=== PATIENT | male | born 1950 | race Caucasian/White ===

== ENCOUNTER 2017-09-03 14:27 | Inpatient (IN) ==
[2017-09-03] MEDS ORDERED: NS 1,000 ML IV ONE (15:03)
[2017-09-03] MEDS ORDERED: ONDANSETRON 4 MG/2 ML INJECTION IVP ONE (15:05)
--- NOTE | 2017-09-03 15:06 | Emergency Department Report ---
Male Urogenital HPI - General Chief complaint: Urogenital-Male Stated complaint: poss kidney stone,fever Time Seen by Provider: 09/03/17 14:44 Source: patient Mode of arrival: ambulatory Limitations: no limitations - History of Present Illness HPI Narrative: Patient is a 67-year-old male who presents to the ER with complaints of severe fatigue/weakness, dark urine progressing over the last several days, and pain in his left and right flank which he thinks is related to kidney stones. This morning had a fever of 101. Has had nausea but no vomiting. Last ate last evening. Had a Coke today around noon. Last kidney stone was 2-3 years ago. States his pain started around 10 AM. He had cold symptoms starting last week and started to feel better over the weekend, but reports that yesterday he was starting to feel run down. - Related Data Home Medications Medication Instructions Recorded Confirmed No known Home medications [No home 09/03/17 09/03/17 meds] Allergies Allergy/AdvReac Type Severity Reaction Status Date / Time amoxicillin Allergy Mild Verified 09/03/17 15:03 codeine Allergy Unknown Verified 09/03/17 15:03 Penicillins Allergy Unknown Verified 09/03/17 15:03 Review of Systems All systems: reviewed and negative except as stated (headache, nausea, epigastric and umbilical abdominal pain, flank pain, myalgias. No urinary symptoms other than dark urine) [facility] Patient Stated Medical History Other HEENT Yes: Wears glasses Hx Kidney Stones Yes Clinic Medical History (Last Reviewed 06/28/17 @ 10:16 by Danish Sweeney MD) Anxiety (Acute Medical) High blood pressure (Acute Medical) UGO (obstructive sleep apnea) (Acute Medical) Surgical History: Lt Shoulder Rotator Cuff, lithotripsy Family History: Family History (Last Reviewed 06/28/17 @ 10:16 by Danish Sweeney MD) Father Diabetes Heart failure Mother High blood pressure Stroke - Social History Smoking status: Former smoker (quit "a long time ago") Substance use type: does not use Alcohol intake frequency: former alcohol drinker (quit drinking greater than 5 years ago) Household members: spouse Current occupational status: employed Current occupation: [employer] Social history: PCP-Dr. Elmore Physical Exam - Limitations Limitations: no limitations - General General appearance: in no apparent distress - Normal Exams: Head:: Normocephalic without trauma Eyes:: Pupils are PERRLA w/ EOMI Neck:: Full range of motion, without adenopathy Chest/Respirations:: Clear all fajardo Cardiovascular:: Regular rate and rhythm, capillary refill Abdomen:: Bowel sounds positive, soft, non-tender Integumentary:: No rashes Neurological:: Patient is alert, and oriented, exams w/o gross deficits Psychiatric:: Patient exhibits, appropriate attention - Abdominal Exam Abdominal exam: Present: distention, tenderness (epigastric and periumbilical). Absent: guarding, rebound - Extremities Exam Extremities exam: Absent: pedal edema - Back Exam Back exam: Absent: CVA tenderness (R), CVA tenderness (L) Course Vital Signs Temperature 99.1 F 09/03/17 14:40 Pulse Rate 98 09/03/17 14:40 Respiratory Rate 20 09/03/17 14:40 Blood Pressure 122/70 09/03/17 14:40 Pulse Oximetry 95 09/03/17 14:40 Temperature 98.9 F 09/03/17 18:55 Pulse Rate 82 09/03/17 18:55 Respiratory Rate 20 09/03/17 18:55 Blood Pressure 133/76 09/03/17 18:55 Pulse Oximetry 98 09/03/17 18:55 Urogenital-Male - MDM Narrative Medical decision making narrative: Patient with acute cholelithiasis. Gallbladder ultrasound and CT scan correlate with this. Elevated LFTs. Leukocytosis. Dr. Hankins initially consulted as he was hematologist oncologist. He recommended I consult Dr. Cortez as "Dr. Elmore typically refers everything to Dr. Cortez." Case discussed with Dr. Cortez who would like hospitalists to admit and consult him. He will see patient today. Surgery in the morning. Dr. Soto was notified and accepted admit. - Lab Data Attestation: I reviewed the patient's lab results. Result diagrams: 09/03/17 15:10 09/03/17 15:10 Lab Results 09/03/17 09/03/17 09/03/17 Range/Units 15:10 15:10 15:10 WBC 12.0 H (4.5-11.0) T/MM3 RBC 5.26 (4.50-5.90) M/MM3 Hgb 15.9 (13.5-17.5) GM/DL Hct 47.1 (41-53) % MCV 89.5 (80-100) UM3 MCH 30.2 (26-34) UUG MCHC 33.8 (31-37) GM/DL RDW Std Deviation 42.7 (36.9-50.2) FL Plt Count 183 (130-400) T/MM3 MPV 9.8 (9.4-12.4) UM3 Immature Gran % (Auto) Not performed Neut % (Auto) Not performed Lymph % (Auto) Not performed [place] % (Auto) Not performed Eos % (Auto) Not performed Baso % (Auto) Not performed Neut # (Auto) Not performed Lymph # (Auto) Not performed [place] # (Auto) Not performed Eos # (Auto) Not performed Baso # (Auto) Not performed Abs Immat Gran (auto) Not performed Neutrophils % (Manual) 92.0 H (33-66) % Lymphocytes % (Manual) 5.0 L (23-45) % Monocytes % (Manual) 3.0 (0-9.0) % Neutrophils # (Manual) 11.0 H (1.8-7.7) T/MM3 Lymphocytes # (Manual) 0.6 L (1-4.8) T/MM3 Monocytes # (Manual) 0.4 (0-0.8) T/MM3 RBC Morph Comment Normal Turbidity < 20 (0-20) Sodium 144 (134-144) MEQ/L Potassium 3.4 L (3.6-5) MEQ/L Chloride 104 (98-107) MEQ/L Carbon Dioxide 27 (22-30) MEQ/L Anion Gap 13 (5-15) MEQ/L BUN 13.0 (9-20) MG/DL Creatinine 1.0 (0.8-1.5) mg/dL GFR Calculation 75 BUN/Creatinine Ratio 13 (6-26) RATIO Glucose 130 H (75-110) MG/DL Calculated Osmolality 279 (261-280) MOSM/KG Calcium 9.2 (8.4-10.2) MG/DL Total Bilirubin 1.60 H (0.20-1.30) MG/DL Icterus Index < 2 (0-7) AST 178 H (17-59) U/L ALT 256 H (21-72) U/L Alkaline Phosphatase 133 H (38-126) U/L Total Protein 7.6 (6.3-8.2) g/dL Albumin 4.4 (3.5-5.0) g/dL Globulin 3.2 (2.4-3.6) G/DL Albumin/Globulin Ratio 1.4 (1.1-2.2) RATIO Specimen Hemolysis < 15 (0-25) Ur Collection Type Urine, void-cc/notcc Urine Color Yellow (YELLOW) Urine Clarity Clear Urine pH 5.5 (5.0-8.0) Ur Specific [place] 1.025 (1.015-1.025) Urine Protein Negative (NEGATIVE) Urine Glucose (UA) Negative (NEGATIVE) Urine Ketones Negative (NEGATIVE) Urine Occult Blood Negative (NEGATIVE) Urine Nitrate Negative (NEGATIVE) Urine Bilirubin Negative (NEGATIVE) Urine Urobilinogen 0.2 (NORMAL) EU/DL Ur Leukocyte Esterase Negative (NEGATIVE) Urinalysis Comment Microscopic not ind. Influenza Type A (PCR) (Negative) Influenza Type B (PCR) (Negative) 09/03/17 Range/Units 15:10 WBC (4.5-11.0) T/MM3 RBC (4.50-5.90) M/MM3 Hgb (13.5-17.5) GM/DL Hct (41-53) % MCV (80-100) UM3 MCH (26-34) UUG MCHC (31-37) GM/DL RDW Std Deviation (36.9-50.2) FL Plt Count (130-400) T/MM3 MPV (9.4-12.4) UM3 Immature Gran % (Auto) Neut % (Auto) Lymph % (Auto) [place] % (Auto) Eos % (Auto) Baso % (Auto) Neut # (Auto) Lymph # (Auto) [place] # (Auto) Eos # (Auto) Baso # (Auto) Abs Immat Gran (auto) Neutrophils % (Manual) (33-66) % Lymphocytes % (Manual) (23-45) % Monocytes % (Manual) (0-9.0) % Neutrophils # (Manual) (1.8-7.7) T/MM3 Lymphocytes # (Manual) (1-4.8) T/MM3 Monocytes # (Manual) (0-0.8) T/MM3 RBC Morph Comment Turbidity (0-20) Sodium (134-144) MEQ/L Potassium (3.6-5) MEQ/L Chloride (98-107) MEQ/L Carbon Dioxide (22-30) MEQ/L Anion Gap (5-15) MEQ/L BUN (9-20) MG/DL Creatinine (0.8-1.5) mg/dL GFR Calculation BUN/Creatinine Ratio (6-26) RATIO Glucose (75-110) MG/DL Calculated Osmolality (261-280) MOSM/KG Calcium (8.4-10.2) MG/DL Total Bilirubin (0.20-1.30) MG/DL Icterus Index (0-7) AST (17-59) U/L ALT (21-72) U/L Alkaline Phosphatase (38-126) U/L Total Protein (6.3-8.2) g/dL Albumin (3.5-5.0) g/dL Globulin (2.4-3.6) G/DL Albumin/Globulin Ratio (1.1-2.2) RATIO Specimen Hemolysis (0-25) Ur Collection Type Urine Color (YELLOW) Urine Clarity Urine pH (5.0-8.0) Ur Specific [place] (1.015-1.025) Urine Protein (NEGATIVE) Urine Glucose (UA) (NEGATIVE) Urine Ketones (NEGATIVE) Urine Occult Blood (NEGATIVE) Urine Nitrate (NEGATIVE) Urine Bilirubin (NEGATIVE) Urine Urobilinogen (NORMAL) EU/DL Ur Leukocyte Esterase (NEGATIVE) Urinalysis Comment Influenza Type A (PCR) Negative (Negative) Influenza Type B (PCR) Negative (Negative) - Radiology Data Attestation: I reviewed the patient's radiology results. Disposition Clinical Impression: Acute cholecystitis Disposition: 02 To [facility] [place] Care Condition: Stable Prescriptions: No Action No known Home medications [No home meds] 0 #0 [facility] [place] Referrals: Darren Elmore DO [Family Provider] - - Seen By: midlevel
--- NOTE | 2017-09-03 16:07 | XRay Report ---
Indication: cough PROCEDURE: XR chest 1V: Encounter: Initial Comparison: December 03, 2009 FINDINGS: The lungs are clear. There is no abnormal airspace opacity, pleural effusion or pneumothorax identified. The heart size, pulmonary vasculature and mediastinum are within normal limits. IMPRESSION: No acute cardiopulmonary abnormality. .
--- NOTE | 2017-09-03 17:11 | Ultrasound Report ---
Indication: elevated LFT's, abd pain PROCEDURE: US gall bladder: Encounter: Initial Comparison: None Technique: Grayscale and color Doppler sonographic imaging of the right upper quadrant of the abdomen was performed. Findings: Limited study due to patient body habitus. Hepatic parenchyma is homogeneous without evidence for focal mass. The gallbladder is abnormal with multiple shadowing gallstones and wall thickening of 5 to 6 mm. Both the intra and extrahepatic biliary system are of normal caliber with the common duct measuring 6 mm in dimension. Visualized portions of the head and body of the pancreas are unremarkable. The right kidney is present without collecting system dilatation. The right kidney measures 12.3 cm in length. Impression: Acute cholecystitis. .
--- NOTE | 2017-09-03 19:35 | History & Physical Report ---
History of Present Illness Date: 09/03/17 Chief complaint: back pain/abdominal pain HPI: Mr. Dwyer is a 67-year-old male with history of nephrolithiasis who presented to the emergency room complaining of sharp bilateral lower back pain and epigastric pain starting this morning and followed by chilling/trembling. Temperature at home was 101 and he describes nausea without emesis. Reports having 2 bowel movements earlier today. He presented to the emergency room concerned that he had a kidney stone. He's had similar pains occasionally in the past most recently on Sunday although is not nearly as severe and was not associated with the severe chilling that he experienced this morning. He has not previously correlated pain with meals or with fatty foods. He presented to the emergency room for evaluation of fever, chills, and pain due to concern that this may be a kidney stone but instead was found to have acute cholecystitis. Liver enzymes were elevated however CT imaging did not reveal ductal dilatation and the patient was subsequently referred for hospitalization in anticipation of surgery with after consultation with Dr. Cortez. Review of Systems All systems PM: 10-point ROS was reviewed, no additional remarkable complaints except (or blurry vision/double vision in the morning, chronic tinnitus, chronic exertional dyspnea; remainder of comprehensive review of system was negative excluding symptoms in the history of present illness.) Past Medical History Past Medical History Degenerative disc disease/cervical stenosis Hypertension Hypothyroidism Nephrolithiasis Obstructive sleep apnea on CPAP Irritable bowel syndrome Depression/anxiety Surgical History: Lt Shoulder Rotator Cuff, Kidney Stones, colonoscopy with polypectomy, thumb surgery in 1968 Family History: Family History (Last Reviewed 06/28/17 @ 10:16 by Danish Sweeney MD) Father Diabetes Heart failure Mother High blood pressure Stroke Family History Updates: Father at age 90 been previously had diabetes, CAD , CHF. Mother in her 80s after a stroke, preceding trigeminal neuralgia and hypertension. Multiple family members with hypertension - Social History Smoking status: Never smoker Substance use type: does not use Alcohol intake frequency: former alcohol drinker Does patient use chewing tobacco?: Yes (one can daily) Social history: PCP-Dr. Elmore Full code Medications Home Medications Medication Instructions Recorded Confirmed Type No known Home medications [No home 09/03/17 09/03/17 History meds] Allergies Allergy/AdvReac Type Severity Reaction Status Date / Time amoxicillin Allergy Mild Verified 09/03/17 15:03 codeine Allergy Unknown Verified 09/03/17 15:03 Penicillins Allergy Unknown Verified 09/03/17 15:03 Exam Vital Signs: Temperature 98.9 F 09/03/17 18:55 Pulse Rate 82 09/03/17 18:55 Respiratory Rate 20 18 18:55 Blood Pressure 133/76 09/03/17 18:55 Pulse Oximetry 98 09/03/17 18:55 EXAM: General-NAD, obese, cooperative, fluent speech HEENT-PERRL, EOMI without nystagmus, conjugate gaze, conjunctiva clear, sclera anicteric, facial structures symmetric, oropharynx clear, neck supple and without adenopathy Lungs-respirations nonlabored, decreased airflow, breath sounds clear Cardiac-regular rhythm, S1-S2 Abd-soft, mild tenderness in the upper abdomen-greatest along the costal margin in the right upper quadrant where there is guarding present; diminished bowel sounds Ext-without edema Skin-without evidence of generalized rash, jaundice, or wounds Neuro-cranial nerves 3-12 intact, motor tone/power within normal limits, sensation intact to light touch 4 extremities Psych-calm, cooperative, euthymic Height/Weight/BMI: Height 1.68 m Weight 120.2 kg Results - Labs CBC & Chem 7: 09/03/17 15:10 09/03/17 15:10 Labs: Bilirubin 1.6, AST 178, ALT 256, alkaline phosphatase 133 Urinalysis unremarkable-negative for blood/ketones Influenza A/B negative - Imaging and Cardiology Chest x-ray Status: image reviewed by me (NAD) US - abdomen Status: image reviewed by me (multiple gallstones, gallbladder wall thickening, no ductal dilatation) CT scan - abdomen Status: image reviewed by me (no hydronephrosis, nonobstructing 3 mm stone on the right, cholelithiasis without ductal dilatation) Assessment and Plan (1) Acute cholecystitis Current visit: Yes Status: Acute Assessment and Plan: Impression: Acute cholecystitis Abnormal liver enzymes Hypokalemia DJD/DDD/spinal stenosis Obstructive sleep apnea Plan: Dr. Cortez has been consulted for assistance with management of acute cholecystitis. Patient will be empirically started on antibiotics given mild leukocytosis and preceding fever. Liver enzymes raise the question of common duct stone or transient obstruction of the biliary tree although there is no evidence of ductal dilatation on imaging studies currently available. Cholecystectomy planned tomorrow. IVF with KCl. NPO. Follow liver enzymes, check lipase in a.m. Hospital course anticipated exceed 2 days/nights. Discussed with ER provider, outpatient records reviewed, discussed with Dr. Cortez. DVT Prophylaxis: SCD's GI Prophylaxis: Protonix Resuscitation Status: Full Code - Physician Narrative Narrative: Date: 09/03/17 Time: 1928 Sepsis Assessment - Evaluation SIRS Criteria: pulse > 90 beats/minute Hospital Course Summary Disclaimer: The visit summary below is not to be considered part of the above Progress Note. Hospital Course: 09/03/17-admission Dr. Cortez has been consulted for assistance with management of acute cholecystitis. Patient will be empirically started on antibiotics given mild leukocytosis and preceding fever. Liver enzymes raise the question of common duct stone or transient obstruction of the biliary tree although there is no evidence of ductal dilatation on imaging studies currently available. Cholecystectomy planned tomorrow.
[2017-09-03] MEDS ORDERED: ACETAMINOPHEN 325 MG TABLET PO PRN (19:48)
[2017-09-03] MEDS ORDERED: ONDANSETRON 4 MG/2 ML INJECTION IVP PRN (19:48)
[2017-09-03] MEDS ORDERED: MORPHINE SULFATE 4mg INJECTION IVP PRN (19:48)
[2017-09-03] MEDS ORDERED: Oxycodone/Acetaminophen 5/325 1 TAB PO PRN (19:48)
--- NOTE | 2017-09-03 19:49 | General Surgery Consult Note ---
Consult date: 09/04/17 Reason for consult: abdominal pain PFSH Patient Stated Medical History Other HEENT Yes: Wears glasses Hx Kidney Stones Yes Clinic Medical History (Last Reviewed 06/28/17 @ 10:16 by Danish Sweeney MD) Anxiety (Acute Medical) High blood pressure (Acute Medical) UGO (obstructive sleep apnea) (Acute Medical) Surgical History: -Lt Shoulder Rotator Cuff, 01/01/2009 Dr Sweeney. -Kidney Stones,. -colonoscopy with Tubulovillous adenoma and diverticulosis Dr. Cortez 10/19/2008. -thumb surgery in 1969 Family History: Family History (Last Reviewed 06/28/17 @ 10:16 by Danish Sweeney MD) Father Diabetes Heart failure Mother High blood pressure Stroke Family History Updates: Father at age 90 been previously had diabetes, CAD , CHF. Mother in her 80s after a stroke, preceding trigeminal neuralgia and hypertension. Multiple family members with hypertension - Social History Smoking status: Never smoker Substance use type: does not use Alcohol intake frequency: does not drink Household members: spouse Current occupational status: employed Current occupation: [employer] Does patient use chewing tobacco?: Yes (one can daily) Medications Home Medications Medication Instructions Recorded Confirmed Type No known Home medications [No home 09/03/17 09/03/17 History meds] Allergies Allergy/AdvReac Type Severity Reaction Status Date / Time amoxicillin Allergy Mild Verified 09/03/17 15:03 codeine Allergy Unknown Verified 09/03/17 15:03 Penicillins Allergy Unknown Verified 09/03/17 15:03 Review of Systems 10-point ROS: negative except for HPI and the following: - General General: Present: fever - Eyes/Ears/Nose/Throat Eyes: Present: vision problems (blurry, wears glasses) Ear Nose Throat: Present: other (chronic tinnitis) - Respiratory Respiratory: Present: difficulty breathing (on exertion), sleep apnea, use of CPAP - Gastrointestinal Gastrointestinal: Present: nausea - Genitourinary Additional comments: History of Kidney stones - Musculoskeletal Musculoskeletal: Present: joint pain (shoulder, he saw Dr. Sweeney in June 2017) - Neurological Neurological: Present: other (headaches, usually in the morning, this has become less by adding oxygen to the c-pap) - Psychiatric Psychiatric: Present: anxiety - Vital Signs Last Vital Signs Temp 98.9 F 09/03/17 19:40 Pulse 82 09/03/17 19:40 Resp 20 09/03/17 19:40 BP 133/76 09/03/17 19:40 Pulse Ox 98 09/03/17 19:40 - Laboratory Result Diagrams: 09/04/17 04:28 09/04/17 04:28 General Surgery Results - Results Labs: 09/03/17 15:10 09/03/17 15:10 Hospital Course Summary Disclaimer: The visit summary below is not to be considered part of the above Progress Note.
[2017-09-03] MEDS ORDERED: ERTAPENEM 1 G in NS 100 ML IV SCH (20:00)
[2017-09-03] MEDS: SALINE FLUSH 10ml SYRINGE IV PRN (20:13)
[2017-09-03] MEDS: NS with KCL 20 mEq 1,000 ML IV SCH (20:18)
[2017-09-03 20:22] VITALS: BMI 42.5
[2017-09-04] MEDS: NS with KCL 20 mEq 1,000 ML IV SCH ×3 (04:30→22:26)
[2017-09-04] MEDS ORDERED: BUPIVACAINE 0.25%/EPI 1:200,000 30ml SDV ONE (07:57)
[2017-09-04] MEDS ORDERED: SALINE FLUSH 10ml SYRINGE ONE (07:58)
[2017-09-04] MEDS ORDERED: INDOCYANINE GREEN 25mg INJECTION ONE (07:58)
--- NOTE | 2017-09-04 08:14 | CT Scan Report ---
Indication: elevated LFT's, abd pain PROCEDURE: CT abdomen pelvis wo con: Encounter: Initial Comparison: Gallbladder ultrasound from the same date Technique: Axial CT images were performed through the abdomen and pelvis without intravenous contrast. Coronal and sagittal two-dimensional reformats. Automated Exposure Control and Iterative Reconstruction dose reducing techniques were utilized. Findings: Mild atelectasis in the lung bases. Granulomas in the lingula. The unenhanced liver is unremarkable. Spleen is normal. Partially fatty replaced pancreas. Gallstone seen within the gallbladder. No obvious pericholecystic inflammation by CT. Wall thickening was better evaluated on today's ultrasound. The adrenal glands are normal. 4 mm lower pole right renal stone. No left-sided renal stones or ureteral stones. Bladder is normal. Prostate and rectum are normal. Sigmoid diverticulosis without acute diverticulitis. No bowel obstruction. Bone windows show mild degenerative change in the spine. Impression: 1. Cholelithiasis. Today's ultrasound was consistent with acute cholecystitis. 2. Right nephrolithiasis. There is a preliminary report by [employer]. .
[2017-09-04] MEDS: ERTAPENEM 1 G in NS 50 ML IV SCH (08:39)
[2017-09-04] MEDS ORDERED: KETOROLAC 15 MG/ML INJECTION IVP ONE (08:55)
--- NOTE | 2017-09-04 09:01 | General Surgery Progress Note ---
Subjective Patient reports: pain is less (RUQ is less, has a "pounding headache" now.) Narrative: States urine was quite dark this morning. - Vital Signs Last Vital Signs Temp 97.9 F 09/04/17 07:42 Pulse 62 09/04/17 08:00 Resp 18 09/04/17 07:42 BP 143/78 H 09/04/17 07:42 Pulse Ox 94 09/04/17 07:42 - Laboratory Result Diagrams: 09/04/17 04:28 09/04/17 04:28 - Abnormal Exam Abdominal: obese, tender (MINDI and epigastric) - Normal Exam General: awake, alert, oriented Cardiovascular: regular rate Respiratory: no labored breathing Psychiatric: normal affect Assessment and Plan (1) Cholelithiasis with acute cholecystitis Current Visit: Yes Status: Acute (2) Acute cholecystitis Current Visit: Yes Status: Acute Plan: Plan on robotic lap hannah and interoperative cholangiogram this morning. bilirubin is higher this morning, if there is a common duct stone unable to be removed today, will likely transfer to [place] for ERCP tomorrow. This possible scenario explained to patient. Hospital Course Summary Disclaimer: The visit summary below is not to be considered part of the above Progress Note. Hospital Course: 09/03/17-admission Dr. Cortez has been consulted for assistance with management of acute cholecystitis. Patient will be empirically started on antibiotics given mild leukocytosis and preceding fever. Liver enzymes raise the question of common duct stone or transient obstruction of the biliary tree although there is no evidence of ductal dilatation on imaging studies currently available. Cholecystectomy planned tomorrow.
[2017-09-04] MEDS: SALINE FLUSH 10ml SYRINGE IV PRN (09:07)
[2017-09-04] MEDS: LR 1,000 ML IV SCH ×2 (10:05→12:04)
[2017-09-04] MEDS ORDERED: IOHEXOL 300mg/ml 50ml INJECTION ONE (10:05)
[2017-09-04] MEDS ORDERED: INDOCYANINE GREEN 25mg INJECTION IVP ONE (10:14)
[2017-09-04] MEDS ORDERED: BUPIVACAINE 0.25%/EPI 1:200,000 30ml SDV ID ONE (10:14)
[2017-09-04] MEDS ORDERED: SALINE FLUSH 10ml SYRINGE IV ONE (10:14)
--- NOTE | 2017-09-04 10:16 | Anesthesia Preoperative Report ---
Anesthesia Preoperative Record - Date and Time Date: 09/04/17 Preoperative Diagnosis: acute cholecystitis Proposed Procedure: Robotic Choleycystectomy NPO Since Date: 09/03/17 NPO Since Time: 23:55 Allergies/Adverse Reactions: Allergies Allergy/AdvReac Type Severity Reaction Status Date / Time amoxicillin Allergy Mild Verified 09/03/17 15:03 codeine Allergy Unknown Verified 09/03/17 15:03 Penicillins Allergy Unknown Verified 09/03/17 15:03 - Vital Signs Vital Signs: Temperature 97.8 F 09/04/17 09:54 Pulse Rate 63 09/04/17 10:11 Respiratory Rate 18 09/04/17 09:54 Blood Pressure 163/80 H 09/04/17 09:54 Pulse Oximetry 94 09/04/17 09:54 Height and Weight: Height 5 ft 6 in Weight 120.4 kg Body Mass Index 42.5 - Medications Inpatient Medications: Current Medications Acetaminophen (Tylenol) 325 - 650 mg PO Q5H PRN PRN Reason: Discomfort Last Admin: 09/03/17 20:35 Dose: 650 mg Potassium Chloride/Sodium Chloride (Ns With Kcl 20 Meq) 1,000 mls @ 125 mls/hr IV .Q8H VALERIY Last Infusion: 09/04/17 09:40 Dose: 0 mls/hr Ertapenem 1 g/ Sodium Chloride 50 mls @ 100 mls/hr IV DAILY VALERIY Last Infusion: 09/04/17 09:09 Dose: Infused Lidocaine HCl 10 mg/ Potassium Chloride 10 meq/ Sodium Chloride 100 mls @ 100 mls/hr IV .Q1H VALERIY Stop: 09/04/17 13:43 Lactated Ringer's (Lactated Ringers) 1,000 mls @ 50 mls/hr IV .Q20H VALERIY Last Admin: 09/04/17 10:05 Dose: 50 mls/hr Morphine Sulfate (Morphine Sulfate Inj) 2 - 4 mg IVP Q2H PRN PRN Reason: Pain Ondansetron HCl (Zofran) 4 mg IVP Q6H PRN PRN Reason: Nausea &/or vomiting Oxycodone/Acetaminophen (Percocet 5/325) 1 tab PO Q4H PRN PRN Reason: Pain Sodium Chloride (Iv Flush) 10 - 80 ml IV PRN PRN PRN Reason: Flushing Last Admin: 09/04/17 09:07 Dose: 20 ml Home Medications: Home Medications Medication Instructions Recorded Confirmed Type No known Home medications [No home 09/03/17 09/03/17 History meds] Is Patient on Beta Libertad?: No - Medical History Respiratory: Reports: Sleep Apnea (WEARS CPAP) DENIES: Asthma, Bronchitis, Chronic Obstructive Pulmonary Disease (COPD), Dyspnea, Orthopnea, Pulmonary Embolism, Pneumonia, Upper Respiratory Infection, Pulmonary Edema, Tuberculosis, Other Cardiovascular: DENIES: Abnormal EKG, Angina, Arrhythmia, Congestive Heart Failure, Coronary Artery Disease, Heart Murmur, Hypertension, Hypotension, High Cholesterol, Myocardial Infarction, Rheumatic Fever, Valvular Heart Disease, Other Gastrointestional: Reports: Nausea or Vomiting Present DENIES: Obstructive Bowel, Hepatitis, Cirrhosis, Gastroesophageal Reflux Disease, Gastrointestinal Bleeding, Hiatal Hernia, Ulcer, Morbid Obesity, Other Neuro/Musculoskeletal: Denies: HX.MS.OSAR, Back Problems, Cerebrovascular Accident, Depression, Headaches, Loss of Consciousness, Muscle Weakness, Neuromuscular Disorder, Paralysis, Paresthesia, Syncope, Seizures, Other Renal/Endocrine: DENIES: Diabetes Mellitus Type 1, Diabetes Mellitus Type 2, Renal Failure, Dialysis, Thyroid Disease, Weight Loss, Weight Gain, Other Other History: DENIES: Anesthesia Reactions, Now, Blood Transfusions, Chemotherapy , Cancer, Hemophilia, Malignant Hyperthermia, Sickle Cell Disease, Other - Surgical History Respiratory Surgery/Treatments: Reports: CPAP Use (@ night) Musculoskeletal Surgery/Tx: Reports: Shoulder Arthroscopy (left shoulder rotator cuff) Anesthesia Reactions: None Hx Family Anesthesia Reaction: No History of Motion Sickness: No - Social History Smoking Status: Never smoker Hx Chewing Tobacco Use: Yes (one can daily) Second Hand Exposure: No Substance Use Type: does not use Alcohol Intake Frequency: does not drink - Pertinent Findings Laboratory: CBC and BMP 09/04/17 04:28 09/04/17 04:28 BMP 09/04/17 04:28 Sodium 144 Potassium 3.3 L Chloride 106 Carbon Dioxide 29 BUN 13.0 Creatinine 1.0 Glucose 103 Calcium 8.4 D Liver Function 09/04/17 Range/Units 04:28 Total Bilirubin 2.20 H (0.20-1.30) MG/DL AST 92 H D (17-59) U/L ALT 177 H (21-72) U/L Alkaline Phosphatase 94 D (38-126) U/L Albumin 3.5 (3.5-5.0) g/dL EKG: Sinus Rhythm - Physical Exam Respiratory Exam: Present: lungs clear, bilateral breath sounds equal Cardiovascular Exam: Present: regular rate and rhythm, no murmur - Airway Assessment Mallampati Score: III TMD: 3 Fingerbreadths Neck Extension: good Overall Assessment: may be difficult mask vent, may be difficult intubation - ASA ASA Score: 3 - Plan Anesthesia: General Inhalation Gases - Discussion Discussion: Discussed risks/options/alternatives of anesthesia and questions answered. Patient consents. Nursing pain assessment noted. Present for Discussion: spouse Attestation Statement: Prior to the delivery of any anesthetic medication, I examined the patient, developed the plan, obtained the patient's consent and discussed the risk and benefits of the procedure with the patient/guardian. - Additional Information Seen by Anesthesia: Yes
[2017-09-04] MEDS ORDERED: ROCURONIUM 50 MG/5 ML INJECTION IVP ONE (10:29)
[2017-09-04] MEDS ORDERED: SUCCINYLCHOLINE 20mg/mL 10mL INJECTION ONE (10:29)
[2017-09-04] MEDS ORDERED: PROPOFOL 40 ML ONE (10:29)
[2017-09-04] MEDS ORDERED: FentaNYL 250 MCG/5 ML INJECTION ONE (10:29)
[2017-09-04] MEDS ORDERED: GLYCOPYRROLATE 0.4 MG/2 ML INJECTION ONE (10:36)
[2017-09-04] MEDS ORDERED: LIDOCAINE 2% (100mg/5ml) SYRINGE (PF) IVP ONE (10:37)
[2017-09-04] MEDS ORDERED: LIDOCAINE VISCOUS 2% ORAL LIQUID 15ml ONE (10:47)
[2017-09-04] MEDS ORDERED: DEXAMETHASONE 4 MG/ML INJECTION ONE (10:51)
[2017-09-04] MEDS ORDERED: KETAMINE 500 MG/10 ML INJECTION ONE (10:51)
[2017-09-04] MEDS ORDERED: IOHEXOL 300mg/ml 50ml INJECTION OPSITE ONE (11:48)
[2017-09-04] MEDS ORDERED: SUGAMMADEX 200mg/2ml INJECTION IVP ONE (12:10)
--- NOTE | 2017-09-04 12:29 | Remote Fluorsocopy Report ---
Indication: CHOLECYSTECTOMY PROCEDURE: RF cholangiogram operative: Comparison: None Findings: 6 fluoroscopic spot images are submitted from an intraoperative cholangiogram. Images demonstrate injection of contrast into the cystic duct with filling of the common duct and intrahepatic biliary tree. There are rounded filling defects seen in the distal common duct consistent with stones. Contrast flows into the duodenum. Impression: Intraoperative fluoroscopy as above. Please refer to the dictated operative note for further details. Fluoroscopy time is 35.6 seconds. Fluoroscopy dose is 1900 mRad. .
--- NOTE | 2017-09-04 12:36 | General Surgery Procedure Note ---
Date of Procedure: 09/04/17 Surgeon: Diego Truck Body Repairer: Yaya Bernabe APRN Postoperative Diagnosis: Acute cholecysitis, cholelithiasis, choledocholithiasis with obstruction Procedure: Robotic assisted laparoscopic cholecystectomy with [employer] imaging and intraoperative cholangiogram Estimated Blood Loss: See Anesthesia Record.
[2017-09-04] MEDS: HYDROMORPHONE 2 MG/ML INJECTION IVP PRN ×2 (12:55→13:05)
[2017-09-04] MEDS ORDERED: ONDANSETRON 4 MG/2 ML INJECTION IVP PRN (12:58)
[2017-09-04] MEDS ORDERED: DiphenhydrAMINE 50 MG/ML INJECTION IVP PRN (12:58)
--- NOTE | 2017-09-04 12:58 | Anesthesia Postoperative Note ---
- Date and Time Date: 09/04/17 Time: 12:57 - Status Patient Participated in Evaluation: Patient Participated in Person Vital Signs: Temperature 97.8 F 09/04/17 12:22 Pulse Rate 68 09/04/17 12:50 Respiratory Rate 18 09/04/17 12:50 Blood Pressure 148/74 H 09/04/17 12:50 Pulse Oximetry 94 09/04/17 12:50 Respiratory Function: Airway Patent Cardiovascular Function: Regular Pulse EKG: Sinus Rhythm Mental Status: Alert and Oriented Pain Intensity: 4 Hydration: Taking PO Fluids Complications During Recover: None Apparent - Follow-Up Instructions Instructions: Per Surgeon
--- NOTE | 2017-09-04 13:28 | Consultation ---
DATE OF SERVICE 09/03/2017 FINDINGS Mr. Dwyer is a 67-year-old gentleman whom I was asked to see as a new patient through the emergency room as a result of his history and physical findings of abdominal pain in conjunction with abnormal laboratory and radiographic evaluation, indicative for acute cholecystitis. Upon questioning the patient he informs me that he began to feel somewhat "sick" about four to five days ago. Patient states that initially he felt as if he had a "head cold." Patient states that he felt congested as well as somewhat dizzy. He really denied any element of abdominal pain at that time. Patient states that over the last couple of days he has begun to intermittently "shake." Patient states that he has done this in the past during an episode of passing kidney stones. Patient states that he was urinating well and did not seem as if he was " passing another kidney stone." Today the pain became more severe in nature. He described the pain as throughout his entire upper abdomen. He really denied any specific localization within his right lower quadrant, epigastric or left lower quadrant but described it as being throughout his entire upper abdomen, as stated above. He did have some nausea in association with the pain but no emesis. He began to "shake a little more" and noted that he was running a low- grade fever. He therefore presented to the emergency room for further evaluation. Patient states that he continues to notice a component of discomfort although this has improved after receiving some pain medications. PAST MEDICAL HISTORY, PAST SURGICAL HISTORY, MEDICATIONS, ALLERGIES, SOCIAL HISTORY, FAMILY HISTORY, REVIEW OF SYSTEMS Performed by my nurse practitioner, Yaya Bernabe APRN. PHYSICAL EXAM GENERAL: Mr. Dwyer is a 67-year-old gentleman who this evening did not appear to be in acute distress. VITAL SIGNS: Temperature 99.1 on admission. Current temperature 97.7, pulse 79 , respirations 20, blood pressure 152/72, SAO2 94% room air. HEENT: Normocephalic. Pupils are equally round and react to light and accommodation. CHEST: Clear to auscultation bilaterally. HEART: Regular rate and rhythm. Normal S1 and S2 without gallops, murmurs or clicks. ABDOMEN: Palpation of the abdomen does indeed reveal tenderness within the upper abdomen. The majority of the pain, however, seems to be more localized within the right subcostal region. Palpation within the right subcostal region did elicit a fair amount of discomfort to the patient. He did have a component of both voluntary as well as some involuntary guarding upon palpation of the right upper quadrant. He did have a slightly positive Garrett's sign. No evidence for hepatosplenomegaly or other abnormal masses. No evidence for christie peritoneal signs. EXTREMITIES: Without clubbing, cyanosis, or edema. NEURO: Cranial nerves II-XII grossly intact. Patient is without focal motor or sensory deficits. LABORATORY/RADIOGRAPHIC EVALUATION The patient had a CBC today and his white count was 12.0. He did have a left shift with 92% neutrophils. CMP was obtained and his total bilirubin was elevated at 1.6. AST was elevated at 178. ALT was elevated at 256. Alkaline phosphatase was 133. Lipase was ordered and is pending at time of dictation. UA was obtained and found to be essentially within normal limits. The patient did undergo a gallbladder ultrasound that did reveal multiple gallstones and gallbladder wall thickening consistent with that of acute cholecystitis. The patient did have a CT scan of his abdomen and pelvis as well. Dictated report from our radiologist is pending. Vrhuang, or the teleradiologist, had dictated the findings revealed cholelithiasis and that the left kidney had somewhat of a lobular contour. No ductal dilatation was noted from a biliary standpoint. ASSESSMENT 67-year-old gentleman with probable acute cholecystitis. PLAN Would recommend that we go ahead and 67-year-old gentleman, probable acute cholecystitis. Plan was recommend we go ahead and admit the patient to the hospital and initiate broad-spectrum antibiotics. I do believe the patient could have some clear liquids this evening. Will keep n.p.o. after midnight. I do not feel we are dealing with an acute surgical emergency which needs to be taken care of yet this evening. Will repeat lab work tomorrow specifically in regards to his liver function tests. It was my recommendation that as a result of the above indications that tomorrow we proceed with laparoscopic, possible robotic-assisted cholecystectomy. I did discuss in detail with the patient and his who was present what a robotic-assisted laparoscopic cholecystectomy would entail and its associated risks which included but was not inclusive of bleeding, infection, potential conversion to an open procedure, potential injury to adjacent structures, especially the common bile duct. The patient and understood and agreed with the proposed plan/algorithm as stated above. REBEKAH
[2017-09-04] MEDS ORDERED: KETOROLAC 15 MG/ML INJECTION IVP PRN (13:35)
--- NOTE | 2017-09-04 13:37 | Progress Note ---
DATE OF SERVICE 09/04/2017 FINDINGS Mr. Dwyer was seen earlier this morning on rounds. He still continues to have an element of discomfort within his epigastric/right upper quadrant. The discomfort, however, is improved from last evening. PHYSICAL EXAM VITAL SIGNS: Afebrile, normotensive. Vitals include temperature 97.8, pulse 63, respirations 18, blood pressure 163/80, SAO2 94% room air. HEENT: Normocephalic. Pupils are equally round and react to light and accommodation. CHEST: Clear to auscultation bilaterally. HEART: Regular rate and rhythm. Normal S1 and S2 without gallops, murmurs or clicks. ABDOMEN: Palpation of the abdomen did not reveal as much tenderness as noted last night upon examination. The patient still, however, had tenderness with firm palpation within the epigastric region and right upper quadrant and a slight component of voluntary guarding. No evidence for involuntary guarding or rebound. LABORATORY/RADIOGRAPHIC EVALUATION The patient had a CBC and CMP obtained today. CBC was unremarkable. CMP unfortunately has revealed that his bilirubin is on an upward trend and is now 2.2. AST, ALT, alkaline phosphatase are improved at 92, 177 and 94, respectively. ASSESSMENT 67-year-old gentleman with acute cholecystitis, possible choledocholithiasis. PLAN I did inform the patient that with his increasing bilirubin I am concerned that he may indeed have a common bile duct stone. I did discuss choledocholithiasis as an entity with the patient. I informed the patient that we would perform an intraoperative cholangiogram. If upon cholangiography he was found to have evidence for a common bile duct stone then I would attempt to remove the stone laparoscopically. I informed the patient that if I am not successful at removing the common bile duct stone laparoscopically that we have two options present at that time. One option would be to proceed with conversion to an open procedure with a formal common bile duct exploration versus sending the patient to [facility] for ERCP. It was concluded with discussion with the patient that if he does have choledocholithiasis that is not able to be cleared laparoscopically that we would send him on to a tertiary care facility to undergo ERCP. All questions were answered this morning presented by the patient. Will proceed with surgery as scheduled. REBEKAH
--- NOTE | 2017-09-04 13:42 | Progress Note ---
- Date 09/04/17 Subjective: Mr. Dwyer was seen in the postoperative area following laparoscopic cholecystectomy. Staff report presence of a common duct stone which could not be removed intraoperatively although I don't have confirmation of this from the surgical staff at present. Patient reports some nausea intermittently through the night but no emesis; at present he complains of pain in his right shoulder with minimal abdominal pain. Denies dyspnea and is on 2 L of supplemental oxygen at time of evaluation. He denied recurrent fever or chills overnight. He denied chest pain or palpitations. Objective Vital signs: Temperature 97.9 F 09/04/17 13:20 Pulse Rate 66 09/04/17 13:25 Respiratory Rate 14 09/04/17 13:25 Blood Pressure 138/56 09/04/17 13:25 Pulse Oximetry 93 - 2L 09/04/17 13:25 I/O 2737/300 NAD, drowsy, responds to questions appropriately Conjunctiva clear, sclera anicteric, conjugate gaze Respirations nonlabored, diminished inspiratory effort, anterior/lateral breath sounds clear Regular rhythm, S1-S2 Abdomen distended, soft, no bowel sounds appreciated Extremities with trace edema Sensation intact 4 extremities Height/Weight/BMI: Height 1.68 m Weight 120.4 kg Body Mass Index 42.5 Results - Labs CBC & Chem 7: 09/04/17 04:28 09/04/17 04:28 Labs: Bilirubin 2.2, AST 92, ALT 177, alkaline phosphatase 94, lipase 111 - Imaging and Cardiology intraoperative cholangiogram Status: image reviewed by me Assessment and Plan (1) Acute cholecystitis Current visit: Yes Status: Acute (2) Choledocholithiasis Current visit: Yes Status: Acute Assessment and Plan: Impression: Acute cholecystitis Choledocholithiasis Abnormal liver enzymes Hypokalemia DJD/DDD/spinal stenosis Obstructive sleep apnea Plan: s/p laparoscopic cholecystectomy this morning; common duct with stones present- call placed to surgery to clarify plans-anticipate transfer to [place] [facility] for ERCP. Continue IV antibiotics, on Invanz daily. Persistent hyperbilirubinemia/transaminitis. Potassium supplementation ordered preoperatively; continue IV fluids in addition. IV morphine/Toradol as needed for pain control. Antiemetics available. DVT Prophylaxis: SCD's Resuscitation Status: Full Code - Physician Narrative Narrative: Date: 09/04/17 Time: 1339 Hospital Course Summary Disclaimer: The visit summary below is not to be considered part of the above Progress Note. Hospital Course: 09/03/17-admission Dr. Cortez has been consulted for assistance with management of acute cholecystitis. Patient will be empirically started on antibiotics given mild leukocytosis and preceding fever. Liver enzymes raise the question of common duct stone or transient obstruction of the biliary tree although there is no evidence of ductal dilatation on imaging studies currently available. Cholecystectomy planned tomorrow. 09/04/17 s/p laparoscopic cholecystectomy this morning; common duct with stones present- call placed to surgery to clarify plans-anticipate transfer to [place] for ERCP. Continue IV antibiotics, on Invanz daily. Persistent hyperbilirubinemia/transaminitis. Potassium supplementation ordered preoperatively; continue IV fluids in addition.
[2017-09-04] MEDS: LIDOCAINE 1% 2ml INJ 10 MG, POTASSIUM CHLORIDE INJ 10 MEQ in NS 100 ML IV SCH ×4 (13:48→17:32)
--- NOTE | 2017-09-04 14:07 | Operative Note ---
DATE OF SERVICE 09/04/2017 SURGEON Noah Cortez MD ADVANCED PRACTICE PROVIDER Yaya Bernabe APRN PREOPERATIVE DIAGNOSIS Symptomatic cholelithiasis/acute cholecystitis. POSTOPERATIVE DIAGNOSES Symptomatic cholelithiasis/acute cholecystitis, choledocholithiasis. PROCEDURE Robotic-assisted laparoscopic cholecystectomy with intraoperative cholangiogram. ANESTHESIA General endotracheal. EBL/FLUIDS Please see chart. BRIEF HISTORY/INDICATIONS Mr. Dwyer is a 67-year-old gentleman whom I was asked to see yesterday through the emergency room as a result of the patient's history and physical findings of abdominal pain in conjunction with an abnormal CT scan and gallbladder ultrasound revealing evidence for acute cholecystitis. The patient's LFTs were slightly elevated. The patient was subsequently admitted to the hospital and it was recommended that he undergo surgical intervention/cholecystectomy. For completeness please refer to notes included in the patient's chart. FINDINGS Upon laparoscopy the liver edge was smooth without nodularities. Small bowel, colon, omentum, peritoneal surfaces which were visualized were within normal limits. Gallbladder was found to be thickened in nature and contained a component of pericholecystic edema consistent with that of acute cholecystitis. Intraoperative angiogram was obtained as a result of increased LFTs. The patient was found to have unfortunately choledocholithiasis. The patient did have a very long tortuous cystic duct and therefore a transcystic common bile duct exploration was not attempted. Furthermore, there was a moderate amount of inflammatory changes within the triangle of Calot. The patient [facility] be [facility]. NARRATIVE OF PROCEDURE After informed consent was obtained the patient was brought to the operating suite and placed on the table in a supine fashion. Abdomen was then prepped and draped in sterile fashion. Formal time-out was then completed. 0.25% Marcaine with epinephrine was injected just beneath the level of the umbilicus. A 2-cm curved incision was made through the area of analgesia. Dissection was carried down to the deep subcuticular tissues and underlying fascia. Fascia was then grasped with two Cas clamps and retracted anteriorly. A 1- cm incision was made between the two Cas clamps. Hemostat was then introduced into the fascial incision and gently spread. A U-stitch was placed with 0-Vicryl. A 12-mm Bhavin port was then placed in the peritoneal cavity. Pneumoperitoneum was established to a patient pressure of 15 mm utilizing carbon dioxide. Next, two additional 8-mm ports were then placed in the left upper quadrant and right midabdomen. An additional 5-mm assist port was then placed along the right lateral abdominal wall. Each port site was preinjected with 0.25% Marcaine and placed under direct visualization. The abdominal cavity was explored via the laparoscope. Findings were as noted above. Next, the robot was then docked overlying the patient's right shoulder at a 45-degree angle. I had my resident assistant cna then grasp the fundal portion of the gallbladder and retract it in a cephalad fashion. A fenestrated bipolar grasper was placed in robotic arm #2. Hook cautery placed in robotic arm #1. Dissection was begun high upon the infundibulum of the gallbladder with the use of electrocautery. Posterior aspect of the infundibulum was completely dissected free from the gallbladder fossa. Cystic artery was dissected out high up onto the midportion of the infundibulum of the gallbladder. Cystic duct was also begun to be dissected out with this junction with the infundibulum. Cystic duct was of a larger diameter than one typically would see. Cystic duct/infundibular portion of the gallbladder was then dissected out away from the infundibulum towards the hepatoduodenal ligament a short distance. Care was taken to avoid use of electrocautery within the vicinity of the hepatoduodenal ligament/common bile duct. Next, a Hem-o-noreen clip was then placed upon the cystic artery upon the midportion of the infundibulum of the gallbladder. Additional Hem-o-noreen clip was placed proximally. Cystic artery did not fluoresce under Firefly biliary imaging. Cystic artery was then divided between the two Hem-o-noreen clips. Firefly biliary imaging was also performed during the process of dissection of the triangle of Calot. The gallbladder did not fluoresce nor did the cystic duct. A single Hem-o-Noreen clip was then placed upon the cystic duct with its junction of the infundibulum of the gallbladder. A ductotomy was made just proximally in regards to the previously placed Hem-o-noreen clip. Next, a cholangiocatheter was then placed within the ductotomy and cholangiogram was obtained under fluoroscopy. Under fluoroscopy one could see a long tortuous cystic duct before entering into the common bile duct. Proximally, one could see the intrahepatic radicles, left and right hepatic duct and common hepatic. No filling defects were noted proximally. Distally, however, one could see an obvious stone within the distal common bile duct. In fact, there appeared to be two separate stones distally. There was a small amount of contrast that could be seen going around these moderate stones and into the duodenum. Next, the cholangiocatheter was removed. The robot had been undocked to obtain the cholangiogram. The robot was then re-docked overlying the patient's right shoulder. I did review the biliary anatomy/intraoperative findings as well as the cholangiogram. It did appear that the patient had a fairly long tortuous cystic duct. Additionally, intraoperatively there was a moderate amount of inflammatory changes within the triangle of Calot and the cystic duct had not been dissected out a great distance away from the infundibulum of the gallbladder for fear of causing injury to the common bile duct. I did not feel that a transcystic duct exploration of the common bile duct was feasible as a result of the above circumstances. I elected to go ahead and proceed with completion of the cholecystectomy this time. An additional Hem-o-noreen clip was placed just proximally upon the cystic duct in relation to the prior ductotomy. Cystic duct was then divided between the two Hem-o-noreen clips. Gallbladder was then carefully and meticulously dissected off the liver bed fossa. Gallbladder was then placed in a laparoscopic retrieval bag and removed from the umbilical port once the robot had been undocked. Irrigation was performed and all irrigant was suctioned until clear. Gallbladder fossa was hemostatic in nature. The previously placed Hem-o-Noreen clips were visible and remained to be intact. Next, all ports were removed under direct visualization. Pneumoperitoneum was released. The previously placed U- stitch at the infraumbilical port was then secured, imbricating the fascia. All skin incisions were closed in a subcuticular fashion with 4-0 Monocryl. The patient is in the process of awakening from his anesthetic and will be sent back to the recovery room once deemed in stable condition. Additionally, it should be noted that Yaya Bernabe APRN, was present throughout the entire case and played a pivotal role in providing assistance and exposure during the course of the procedure. REBEKAH
[2017-09-04] MEDS: HYDROCODONE/APAP 5mg/325mg TABLET PO PRN ×3 (17:03→22:26)
[2017-09-04] MEDS: MORPHINE SULFATE 4mg INJECTION IVP PRN ×2 (18:25→21:11)
[2017-09-05] MEDS: MORPHINE SULFATE 4mg INJECTION IVP PRN (04:32)
[2017-09-05] MEDS: SALINE FLUSH 10ml SYRINGE IV PRN ×3 (04:32→07:55)
[2017-09-05] MEDS ORDERED: HYDROMORPHONE 2 MG/ML INJECTION IVP PRN (07:03)
--- NOTE | 2017-09-05 07:11 | General Surgery Progress Note ---
Subjective Patient reports: still having pain (states he had a very rough night complaining of right severe shoulder pain as well as right upper quadrant pain radiating "straight through" to the right scapular area. This is consistent with retained common duct stone and pneumoperitoneum during surgery. He states pain is significant enough it difficult to take a deep breath. Morphine "didn't make any difference."), shortness of breath (shallow breathing due to the right scapular shoulder pain) Narrative: He is nothing by mouth anticipating transfer by private vehicle to [facility], he should arrived by noon for ERCP by Dr. Mercedes this afternoon. - Vital Signs Last Vital Signs Temp 96.9 F 09/05/17 04:00 Pulse 64 09/05/17 04:00 Resp 20 09/05/17 04:00 BP 172/92 H 09/05/17 04:00 Pulse Ox 93 09/05/17 04:00 - Laboratory Result Diagrams: 09/05/17 04:15 09/05/17 04:15 Laboratory Tests 09/03/17 09/03/17 09/04/17 15:09 15:10 04:28 Total Bilirubin 1.60 H 2.20 H AST 178 H 92 H D ALT 256 H 177 H Lipase 54 111 D 09/05/17 04:15 Total Bilirubin 1.40 H AST 68 H ALT 168 H Lipase 122 - Radiology 09/04 Intraoperative cholangiogram: PROCEDURE: RF cholangiogram operative: Comparison: None Findings: 6 fluoroscopic spot images are submitted from an intraoperative cholangiogram. Images demonstrate injection of contrast into the cystic duct with filling of the common duct and intrahepatic biliary tree. There are rounded filling defects seen in the distal common duct consistent with stones. Contrast flows into the duodenum. - Abnormal Exam General: moderate distress (due to right upper quadrant, scapular, right shoulder pain stating "this is almost as bad as a kidney stone") Respiratory: other (shallow breathing) Abdominal: obese - Normal Exam General: awake, alert, oriented Cardiovascular: regular rhythm, regular rate Respiratory: clear bilaterally, equal bilaterally Abdominal: appropriately tender, incision(s) (clean dry and intact with Dermabond glue in tact) Psychiatric: other (anxious due to right side and scapular pain) Neurological: CN 2-12 grossly intact Assessment and Plan (1) Choledocholithiasis with acute cholecystitis with obstruction Current Visit: Yes Status: Acute (2) Cholelithiasis with acute cholecystitis Current Visit: Yes Status: Acute Qualifiers: Cholelithiasis location: bile duct Biliary obstruction: with biliary obstruction Qualified Code(s): K80.43 - Calculus of bile duct with acute cholecystitis with obstruction (3) Acute cholecystitis Current Visit: Yes Status: Acute Plan: Intraoperative cholangiograms during surgery yesterday did reveal retained common duct stone. Arrangements have been made with Dr. Mercedes in [place] for ERCP this afternoon. To arrive at [facility] by noon. We will leave IV in place. Bilirubin remains elevated at 1.4 (2.2 yesterday) White count 13.6, he is to receive Invanz before discharge. Hypokalemia has normalized at 4.2 today. Still having considerable right scapular, right upper quadrant, and right shoulder pain, morphine has not been effective, will switch to Dilaudid. He should discharge by 11 this morning or sooner. Hospital Course Summary Disclaimer: The visit summary below is not to be considered part of the above Progress Note. Hospital Course: 09/03/17-admission Dr. Cortez has been consulted for assistance with management of acute cholecystitis. Patient will be empirically started on antibiotics given mild leukocytosis and preceding fever. Liver enzymes raise the question of common duct stone or transient obstruction of the biliary tree although there is no evidence of ductal dilatation on imaging studies currently available. Cholecystectomy planned tomorrow. 09/04/17 s/p laparoscopic cholecystectomy this morning; common duct with stones present- call placed to surgery to clarify plans-anticipate transfer to [place] for ERCP. Continue IV antibiotics, on Invanz daily. Persistent hyperbilirubinemia/transaminitis. Potassium supplementation ordered preoperatively; continue IV fluids in addition. 09/05 Intraoperative cholangiograms during surgery yesterday did reveal retained common duct stone. Arrangements have been made with Dr. Mercedes in [place] for ERCP this afternoon. To arrive at [facility] by noon. We will leave IV in place. Bilirubin remains elevated at 1.4 (2.2 yesterday) White count 13.6, he is to receive Invanz before discharge. Still having considerable right scapular, right upper quadrant, and right shoulder pain, morphine has not been effective, will switch to Dilaudid. He should discharge by 11 this morning or sooner.
[2017-09-05] MEDS: NS with KCL 20 mEq 1,000 ML IV SCH (07:15)
[2017-09-05 07:24] VITALS: RESP 18; TEMP 96.1
[2017-09-05] MEDS ORDERED: NS FLUSH BAG 500ml IV PRN (07:43)
[2017-09-05] MEDS: ERTAPENEM 1 G in NS 50 ML IV SCH ×2 (07:58→08:21)
[2017-09-05] MEDS ORDERED: DiphenhydrAMINE 50 MG/ML INJECTION IVP PRN (08:48)
--- NOTE | 2017-09-05 09:10 | Discharge Summary ---
Discharge Information Date of admission: 09/04/17 14:54 Anticipated date of discharge: 09/05/17 Attending Physician: Marybeth Gutierrez MD Primary care physician: Darren Elmore DO Consults: Dr. Cortez - Discharge Diagnosis (1) Acute cholecystitis Status: Acute (2) Choledocholithiasis Status: Acute Choledocholithiasis with acute cholecystitis with obstruction Cholelithiasis with acute cholecystitis Obstructive sleep apnea Elevated bilirubin Limited transaminases Hypokalemia - Procedures Procedures: DATE OF SERVICE 09/04/2017 SURGEON Noah Cortez MD DETECTIVE Yaya Bernabe APRN PREOPERATIVE DIAGNOSIS Symptomatic cholelithiasis/acute cholecystitis. POSTOPERATIVE DIAGNOSES Symptomatic cholelithiasis/acute cholecystitis, choledocholithiasis. PROCEDURE Robotic-assisted laparoscopic cholecystectomy with intraoperative cholangiogram. ANESTHESIA General endotracheal. EBL/FLUIDS Please see chart. BRIEF HISTORY/INDICATIONS Mr. Dwyer is a 67-year-old gentleman whom I was asked to see yesterday through the emergency room as a result of the patient's history and physical findings of abdominal pain in conjunction with an abnormal CT scan and gallbladder ultrasound revealing evidence for acute cholecystitis. The patient's LFTs were slightly elevated. The patient was subsequently admitted to the hospital and it was recommended that he undergo surgical intervention/cholecystectomy. For completeness please refer to notes included in the patient's chart. FINDINGS Upon laparoscopy the liver edge was smooth without nodularities. Small bowel, colon, omentum, peritoneal surfaces which were visualized were within normal limits. Gallbladder was found to be thickened in nature and contained a component of pericholecystic edema consistent with that of acute cholecystitis. Intraoperative angiogram was obtained as a result of increased LFTs. The patient was found to have unfortunately choledocholithiasis. The patient did have a very long tortuous cystic duct and therefore a transcystic common bile duct exploration was not attempted. Furthermore, there was a moderate amount of inflammatory changes within the triangle of Calot. The patient will be sent to [place] for ERCP. - Laboratory Labs: 09/05/17 04:15 09/05/17 04:15 Laboratory Tests 09/03/17 09/03/17 09/03/17 15:09 15:10 15:10 WBC 12.0 H Potassium 3.4 L Total Bilirubin 1.60 H AST 178 H ALT 256 H Alkaline Phosphatase 133 H Lipase 54 09/04/17 09/04/17 09/04/17 04:28 04:28 14:16 WBC 8.1 Potassium 3.3 L 4.3 D Total Bilirubin 2.20 H AST 92 H D ALT 177 H Alkaline Phosphatase 94 D Lipase 09/05/17 09/05/17 04:15 04:15 WBC 12.8 H D Potassium 4.2 Total Bilirubin 1.40 H AST 68 H ALT 168 H Alkaline Phosphatase 103 Lipase History of Present Illness HPI: Mr. Dwyer is a 67-year-old male with history of nephrolithiasis who presented to the emergency room complaining of sharp bilateral lower back pain and epigastric pain starting this morning and followed by chilling/trembling. Temperature at home was 101 and he describes nausea without emesis. Reports having 2 bowel movements earlier today. He presented to the emergency room concerned that he had a kidney stone. He's had similar pains occasionally in the past most recently on Sunday although is not nearly as severe and was not associated with the severe chilling that he experienced this morning. He has not previously correlated pain with meals or with fatty foods. He presented to the emergency room for evaluation of fever, chills, and pain due to concern that this may be a kidney stone but instead was found to have acute cholecystitis. Liver enzymes were elevated however CT imaging did not reveal ductal dilatation and the patient was subsequently referred for hospitalization in anticipation of surgery with after consultation with Dr. Cortez. Objective Vital signs: Temperature 96.1 F L 09/05/17 07:24 Pulse Rate 61 09/05/17 07:39 Respiratory Rate 18 09/05/17 07:24 Blood Pressure 160/91 H 09/05/17 07:24 Pulse Oximetry 95 09/05/17 07:24 Comments: GEN-alert, oriented, no acute distress HEENT-clear anicteric, oropharynx is moist, patient is rubbing his nose secondary to some itching NECK-supple CV-regular rate and rhythm CHEST-clear to auscultation bilaterally ABD-soft, mild tenderness postoperatively, positive bowel sounds -no Berger EXT-no edema NEURO-no focal deficits SKIN-warm and dry and without rashes Hospital Course This is a general summary of the patient's hospital course. For more details refer to the complete medical record. Hospital course: 3/12/18-admission Dr. Cortez has been consulted for assistance with management of acute cholecystitis. Patient will be empirically started on antibiotics given mild leukocytosis and preceding fever. Liver enzymes raise the question of common duct stone or transient obstruction of the biliary tree although there is no evidence of ductal dilatation on imaging studies currently available. Cholecystectomy planned tomorrow. 09/04/17 s/p laparoscopic cholecystectomy this morning; common duct with stones present- call placed to surgery to clarify plans-anticipate transfer to [place] for ERCP. Continue IV antibiotics, on Invanz daily. Persistent hyperbilirubinemia/transaminitis. Potassium supplementation ordered preoperatively; continue IV fluids in addition. 09/05 Intraoperative cholangiograms during surgery yesterday did reveal retained common duct stone. Arrangements have been made with Dr. Kami Naidu in [place] for ERCP this afternoon. To arrive at [facility] by noon. We will leave IV in place. Bilirubin remains elevated at 1.4 (2.2 yesterday) White count 13.6, he is to receive Invanz before discharge. The patient was given Dilaudid for pain due to morphine not working that well. He has had some itching of his nose since receiving Dilaudid. Dilaudid will be discontinued and he will be given some IV Benadryl. On exam today the patient is alert but complains of pain of about a 6 or 7 in his right shoulder and right upper quadrant. Plan is for the patient to remain in the hospital until approximately 11 AM today and if medically stable, he will go by private vehicle to [place] for ERCP. Discussed plan with VI Alva for Dr. Cortez, and also discussed with the patient, his , and his nurse. Time spent with patient: 25 - 35 minutes Resuscitation Status: Full Code Discharge Plan - Discharge Disposition Discharge Date: 09/05/17 (to go to [facility] by noon) Disposition: Discharged Home, Self-Care *Condition: Stable Reason For Visit (Visit label in EMR): acute cholecystitis - Discharge Medications *Discharge Medications: New Hydrocodone/APAP 5/325 [[place] 5/325] 1 - 2 tab PO Q5H PRN #30 tab PRN Reason: Pain - Discharge Packet/Instructions *Diet: regular *Activity: as tolerated, limit lifting to less than 25 lbs for 4 weeks *Pain Management/Treatment: Hydrocodone as needed, ibuprofen when necessary. *Wound Care: Leave incisions open to air, do not rub or pick off the glue. *Expected Signs/Symptoms: Tenderness and bruising around the incision sites. Right shoulder and scapular pain should decrease after ERCP. *Notify Physician if: Increasing abdominal pain, fever over 101.5. *During Business Hours Contact: [phone] *After Business Hours Contact: Hospital arch cushion press operator, and Dr. Cortez can be paged. *Pending Lab/Results: Will review at F/U Appt - Referrals/Follow Up *Referrals/Follow Up: Abi Bernabe APRN [Advanced Practice Nurse] - 09/18/17 10:45 am Darren Elmore DO [Family Provider] - 2 Weeks - Patient Handouts Patient Handouts: Cholecystitis (GEN) - Dismissal Complete Discharge Instructions are:: Complete Physician Narrative - Narrative Attestation Narrative: Date: 09/05/17 Time: 905
[2017-09-05 09:26] VITALS: BP 146/96; PULSE 63; O2SAT 94
== END 2017-09-05 10:48 | disposition home or self-care (01) | DRG 418 ==
LOC: ED 14:27 → SRG 14:27 → SUATTDRO 09-04 14:54
PROVIDERS: ADMIT Internal Medicine; ATTEND Internal Medicine